=== PATIENT | female | born 1955 | race Caucasian/White ===

== ENCOUNTER → 2016-11-18 | Outpatient (CLI) | payer BC ==
--- NOTE | 2016-11-20 09:40 | MM ---
Reason for exam: screening (asymptomatic). Last mammogram was performed 1 year and 4 months ago. History: Patient is postmenopausal and had first child at age 32. Family history of breast cancer in mother at age 70 and breast cancer in maternal aunt at age 65. Benign excisional biopsy of the right breast. Took estrogen for 5 months. Physical Findings: A clinical breast exam by your physician is recommended on an annual basis and results should be correlated with mammographic findings. MG 3D Screening Mammo W/Cad Bilateral CC and MLO view(s) were taken. Prior study comparison: July 13, 2015, bilateral MG 3d screening mammo w/cad. July 06, 2014, bilateral MG screening mammo w CAD. July 05, 2013, bilateral digital screening mammo w/CAD. There are scattered fibroglandular densities. Finding: There are typically benign round calcifications in the right breast. There is no discrete abnormality. ASSESSMENT: Benign, BI-RAD 2 RECOMMENDATION: Routine screening mammogram of both breasts in 1 year.
== END | disposition home or self-care (01) ==
LOC: RADMAMWWP 14:18
PROVIDERS: ATTEND Obstetrics & Gynecology
DX: Z12.31 Encounter for screening mammogram for malignant neoplasm of breast (principal)
CPT/HCPCS: 77063; G0202

== ENCOUNTER → 2018-02-19 | Outpatient (CLI) | payer BC ==
--- NOTE | 2018-02-22 10:41 | MM ---
Reason for exam: screening (asymptomatic). Last mammogram was performed 1 year and 3 months ago. History: Patient is postmenopausal and had first child at age 32. Family history of breast cancer in mother at age 70 and breast cancer in maternal aunt at age 65. Benign excisional biopsy of the right breast. Took estrogen for 5 months. Physical Findings: A clinical breast exam by your physician is recommended on an annual basis and results should be correlated with mammographic findings. MG 3D Screening Mammo W/Cad Bilateral CC and MLO view(s) were taken. Prior study comparison: November 18, 2016, bilateral MG 3d screening mammo w/cad. July 13, 2015, bilateral MG 3d screening mammo w/cad. There are scattered fibroglandular densities. No suspicious abnormality. Post surgical change on the right. No significant changes when compared with prior studies. ASSESSMENT: Benign, BI-RAD 2 RECOMMENDATION: Routine screening mammogram of both breasts in 1 year.
== END ==
LOC: RADMAMWWP 16:40
PROVIDERS: ATTEND Obstetrics & Gynecology
DX: Z12.31 Encounter for screening mammogram for malignant neoplasm of breast (principal)
CPT/HCPCS: 77063; 77067

== ENCOUNTER → 2019-04-12 | Outpatient (CLI) | payer BC ==
--- NOTE | 2019-04-12 13:43 | MM ---
Reason for exam: screening (asymptomatic). Last mammogram was performed 1 year and 2 months ago. History: Patient is postmenopausal and had first child at age 32. Family history of breast cancer in mother at age 70 and breast cancer in maternal aunt at age 65. Benign excisional biopsy of the right breast. Took estrogen for 5 months. Physical Findings: A clinical breast exam by your physician is recommended on an annual basis and results should be correlated with mammographic findings. MG 3D Screening Mammo W/Cad Bilateral CC and MLO view(s) were taken. Prior study comparison: February 19, 2018, bilateral MG 3d screening mammo w/cad. November 18, 2016, bilateral MG 3d screening mammo w/cad. There are scattered fibroglandular densities. There are benign appearing round calcifications in the right breast. There is no discrete abnormality. ASSESSMENT: Benign, BI-RAD 2 RECOMMENDATION: Routine screening mammogram of both breasts in 1 year.
== END ==
LOC: RADMAMWWP 09:54
PROVIDERS: ATTEND Obstetrics & Gynecology
DX: Z12.31 Encounter for screening mammogram for malignant neoplasm of breast (principal)
CPT/HCPCS: 77063; 77067

== ENCOUNTER → 2020-05-01 | Outpatient (CLI) | payer MEDICARE, BC ==
--- NOTE | 2020-05-02 10:51 | MM ---
Reason for exam: screening (asymptomatic). Last mammogram was performed 1 year and 1 month ago. History: Patient is postmenopausal and had first child at age 32. Family history of breast cancer in mother at age 70 and breast cancer in maternal aunt at age 65. Benign excisional biopsy of the right breast. Took hormonal contraceptives for 6 months. Took estrogen for 5 months. Physical Findings: A clinical breast exam by your physician is recommended on an annual basis and results should be correlated with mammographic findings. MG 3D Screening Mammo W/Cad Bilateral CC and MLO view(s) were taken. Prior study comparison: April 12, 2019, bilateral MG 3d screening mammo w/cad. February 19, 2018, bilateral MG 3d screening mammo w/cad. There are scattered fibroglandular densities. No significant changes when compared with prior studies. ASSESSMENT: Benign, BI-RAD 2 RECOMMENDATION: Routine screening mammogram of both breasts in 1 year.
== END | disposition home or self-care (01) ==
LOC: RADMAMWWP 14:59
PROVIDERS: ATTEND Obstetrics & Gynecology
DX: Z12.31 Encounter for screening mammogram for malignant neoplasm of breast (principal); Z80.3 Family history of malignant neoplasm of breast
CPT/HCPCS: 77063; 77067

== ENCOUNTER → 2020-05-07 | Outpatient (CLI) | payer MEDICARE, BC ==
[2020-05-07 22:53] LABS: T4, Free (Free Thyroxine) 1.8 ng/dL (0.80-1.80)
[2020-05-08 17:32] LABS: Thyroid Stim Immun Quant <0.10 IU/L (<0.10)
== END | disposition home or self-care (01) ==
LOC: LABWHC1 12:33
PROVIDERS: ATTEND Internal Medicine
DX: R94.6 Abnormal results of thyroid function studies (principal)
CPT/HCPCS: 36415; 84439; 84442; 84445; 84481; 85652; 86376

== ENCOUNTER 2020-12-22 14:13 | Emergency (ER) | payer MEDICARE, BC ==
[2020-12-22 14:59] VITALS: TEMP 98.9
[2020-12-22] MEDS ORDERED: LIDOCAINE 5% PATCH TOPICAL STA (15:41)
[2020-12-22] MEDS ORDERED: ACET/COD 300 MG/30 MG STARTER PACK 6 TAB BTL PO STA (15:41)
[2020-12-22] MEDS ORDERED: valACYclovir 500 MG TAB PO STA (15:41)
--- NOTE | 2020-12-22 15:45 | ED ---
Skin/Abscess/FB HPI - General Chief complaint: Skin/Abscess/Foreign Body Stated complaint: pain on L side of head and body/rash Time Seen by Provider: 12/22/20 15:11 Source: patient Mode of arrival: ambulatory Limitations: no limitations - History of Present Illness Initial comments: 65-year-old female patient presents to the emergency department today for evaluation of rash and pain to the left side of her neck, left shoulder, left side of her head. States that she developed pain about 5 days ago. States over the last 2 days she has noticed rash developing. Denies any pain radiating down the arm. Denies any exposure to new substances including soaps, lotions, medications, or foods. States she did initially think it was muscular so she did have a massage. She denies fever or chills. States she did have chickenpox as a child. Has not received she goes vaccination. - Related Data Home Medications Medication Instructions Recorded Confirmed Albuterol Sulfate [Ventolin HFA] 2 puff INHALATION Q6H PRN 08/24/15 08/28/15 Atorvastatin [Lipitor] 20 mg PO DAILY 08/24/15 08/28/15 Cholecalciferol [Vitamin D3] 1,000 unit PO DAILY 08/24/15 08/28/15 Cyanocobalamin [Vitamin B-12] 1,000 mcg PO DAILY 08/24/15 08/28/15 Desloratadine [Clarinex] 5 mg PO DAILY 08/24/15 08/28/15 Fluticasone Nasal [place] [Flonase 1 spray EA NOSTRIL DAILY 08/24/15 08/28/15 Nasal [place]] Fluticasone/Salmeterol [Advair 1 inhalation PO DAILY 08/24/15 08/28/15 250-50 Diskus] Levothyroxine Sodium [Synthroid] 100 mcg PO QAM 08/24/15 08/28/15 Montelukast Sodium 10 mg PO HS 08/24/15 08/28/15 Ranitidine HCl 150 mg PO BID 08/24/15 08/28/15 Previous Rx's Medication Instructions Recorded Acetaminophen-Codeine 300-30mg 1 tab PO Q6H PRN #12 tablet 12/22/20 [Tylenol #3] Lidocaine 5% Patch [Lidoderm] 1 patch TOPICAL DAILY #30 patch 10/02/21 valACYclovir HCL 1,000 mg PO TID #21 tab 12/22/20 Allergies Allergy/AdvReac Type Severity Reaction Status Date / Time No Known Allergies Allergy Verified 12/22/20 14:59 Review of Systems ROS Statement: Those systems with pertinent positive or pertinent negative responses have been documented in the HPI. ROS Other: All systems not noted in ROS Statement are negative. Past Medical History Past Medical History: Asthma, GERD/Reflux, Thyroid Disorder Additional Past Medical History / Comment(s): hx polyps History of Any Multi-Drug Resistant Organisms: None Reported Past Surgical History: Section Additional Past Surgical History / Comment(s): breast bx,colonoscopy Past Anesthesia/Blood Transfusion Reactions: No Reported Reaction Past Psychological History: No Psychological Hx Reported Smoking Status: Never smoker Past Alcohol Use History: Occasional Past Drug Use History: None Reported - Past Family History Mother Family Medical History: Cancer Additional Family Medical History / Comment(s): breast Father Additional Family Medical History / Comment(s): heart problems Brother(s) Family Medical History: Myocardial Infarction ([place]) Additional Family Medical History / Comment(s): heart stents x2 General Exam Limitations: no limitations General appearance: alert, in no apparent distress, other (This is a well- developed, well-nourished adult female patient in no acute distress. Vital signs upon presentation are temperature 98.9F, pulse 73, respirations 16, blood pressure 182/85, pulse ox 96% on room air.) Neck exam: Present: other (There is erythematous vesicular rash noted over the left posterior shoulder, left posterior neck, left anterior shoulder). Absent: tenderness, meningismus, lymphadenopathy Respiratory exam: Present: normal lung sounds bilaterally. Absent: respiratory distress, wheezes, rales, rhonchi, stridor Cardiovascular Exam: Present: regular rate, normal rhythm, normal heart sounds. Absent: systolic murmur, diastolic murmur, rubs, gallop, clicks Neurological exam: Present: alert, oriented X3, CN II-XII intact Psychiatric exam: Present: normal affect, normal mood Skin exam: Present: warm, dry, intact, normal color. Absent: rash Course Vital Signs 12/22/20 12/22/20 14:56 16:22 Temperature 98.9 F Pulse Rate 73 62 Respiratory 16 18 Rate Blood Pressure 182/85 158/83 O2 Sat by Pulse 96 96 Oximetry Medical Decision Making - Medical Decision Making 65-year-old female patient presented to the emergency department today for evaluation of left-sided neck and head pain as well as rash to the left neck and shoulder. Physical examination did reveal erythematous vesicular rash consistent with shingles. Symptoms are consistent with shingles. She'll be started on valacyclovir and given pain medication. She is instructed to follow- up with her primary care physician for recheck in 1-2 days. Return parameters were discussed in detail. She verbalizes understanding and agrees with this plan. My attending is Dr. Wiley. Disposition Clinical Impression: Shingles Disposition: HOME SELF-CARE Condition: Good Instructions (If sedation given, give patient instructions): Shingles (ED) Additional Instructions: Take medications as directed. Follow-up with the primary care physician for recheck in 1-2 days. Return to the emergency department for any new, worsening, or concerning symptoms. Prescriptions: Lidocaine 5% Patch [Lidoderm] 1 patch TOPICAL DAILY #30 patch Acetaminophen-Codeine 300-30mg [Tylenol #3] 1 tab PO Q6H PRN #12 tablet PRN Reason: Pain valACYclovir HCL 1,000 mg PO TID #21 tab Is patient prescribed a controlled substance at d/c from ED?: No Referrals: Andrés Vega MD [Primary Care Provider] - 1-2 days Time of Disposition: 15:44
[2020-12-22 16:23] VITALS: BP 158/83; PULSE 62; RESP 18
== END 2020-12-22 16:23 | disposition home or self-care (01) ==
LOC: EC 14:13
DX: B02.9 Zoster without complications (principal); J45.909 Unspecified asthma, uncomplicated; K21.9 Gastro-esophageal reflux disease without esophagitis; E07.9 Disorder of thyroid, unspecified
CPT/HCPCS: 99283

== ENCOUNTER → 2021-02-27 | Outpatient (CLI) | payer MEDICARE, BC ==
--- NOTE | 2021-02-27 12:33 | XR ---
EXAMINATION TYPE: XR chest 2V DATE OF EXAM: 02/27/2021 COMPARISON: 08/28/2015 INDICATION: Bronchitis TECHNIQUE: Frontal and lateral views of the chest are obtained. FINDINGS: The heart size is normal. The pulmonary vasculature is normal. The lungs are clear. IMPRESSION: 1. No acute pulmonary process.
== END | disposition home or self-care (01) ==
LOC: RADXRMAIN 09:58
PROVIDERS: ATTEND Internal Medicine
DX: J40 Bronchitis, not specified as acute or chronic (principal)
CPT/HCPCS: 71046

== ENCOUNTER → 2021-05-23 | Outpatient (CLI) | payer MEDICARE, BC ==
--- NOTE | 2021-05-23 12:56 | US ---
EXAMINATION TYPE: US carotid duplex BILAT DATE OF EXAM: 05/23/2021 COMPARISON: NONE CLINICAL HISTORY: I65.23 OCCLUSION AND STENOSIS OF BILATERAL CAROTID. EXAM MEASUREMENTS: RIGHT: Peak Systolic Velocity (PSV) cm/sec ----- Right CCA: 105.6 ----- Right ICA: 86.6 ----- Right ECA: 122.1 ICA/CCA ratio: 0.8 RIGHT: End Diastole cm/sec ----- Right CCA: 30.5 ----- Right ICA: 22.9 ----- Right ECA: 25.2 LEFT: Peak Systolic Velocity (PSV) cm/sec ----- Left CCA: 91.6 ----- Left ICA: 104.3 ----- Left ECA: 73.8 ICA/CCA ratio: 1.1 LEFT: End Diastole cm/sec ----- Left CCA: 30.0 ----- Left ICA: 34.4 ----- Left ECA: 17.1 VERTEBRALS (direction of flow): Right Vertebral: Antegrade Left Vertebral: Antegrade Rhythm: Normal Minimal atherosclerotic changes without significant velocity increases. IMPRESSION: 1. Minimal atherosclerotic changes without significant flow-limiting stenosis. Criteria for Assigning % of Stenosis / Diameter reduction (Estimation based on the indirect measurements of the internal carotid artery velocities (ICA PSV). 1. Normal (no stenosis)=ICA PSV < 125 cm/s: ratio < 2.0: ICA EDV<40 cm/s. 2. Less than 50% stenosis=ICA PSV < 125 cm/s: ratio < 2.0: ICA EDV<40 cm/s. 3. 50 to 69% stenosis=ICA PSV of 125 to 230 cm/s: ration 2.0 ? 4.0: ICA EDV 40-100 cm/s. 4. Greater than 70% stenosis to near occlusion= ICA PSV > 230 cm/s: ratio > 4.0: ICA EDV > 100 cm/s. 5. Near occlusion= ICA PSV velocities may be low or undetectable: variable ratio and ICA EDV. 6. Total occlusion=unable to detect flow.
== END | disposition home or self-care (01) ==
LOC: RADUSWWP 12:13
PROVIDERS: ATTEND Internal Medicine
DX: I65.23 Occlusion and stenosis of bilateral carotid arteries (principal)
CPT/HCPCS: 93880

== ENCOUNTER → 2021-06-14 | Outpatient (CLI) | payer MEDICARE, BC ==
--- NOTE | 2021-06-14 11:17 | NM ---
EXAMINATION TYPE: NM stress cardiolite complete DATE OF EXAM: 06/14/2021 COMPARISON: NONE HISTORY: History of hypercholesteremia family history of heart attack presents with atherosclerotic h eart disease TECHNIQUE: After the intravenous administration of 9.47 mCi Tc 99m Sestamibi - Rest images obtained 45 minutes post injection. The patient exercised using a ARELY protocol and 1 minute prior to peak exercise was injected with 24.9 mCi Tc 99m Sestamibi - Stress images obtained 10 minutes post injecti on. FINDINGS: Targeted heart rate was achieved during performance of the study. Review of stress and rest SPECT shanel ges demonstrates no distinct perfusion abnormality. Gated analysis shows normal wall motion with an estimated left ventricular ejection fraction of 74 %. IMPRESSION: No scintigraphic evidence for reversible ischemia
--- NOTE | 2021-06-14 16:14 | EST ---
EXERCISE STRESS INDICATION: Coronary artery disease. AGE: 66 SEX: F HT: 5' WT: 130 lbs. PROTOCOL: Cardiolite Sal STAGE: 3 DURATION OF EXERCISE: 7:30 HEART RATE REST: 62 BLOOD PRESSURE REST: 151/91 MAXIMUM HEART RATE ACHIEVED: 137 MAXIMUM BLOOD PRESSURE: 204/100 85% MPHR: 131 100% MPHR: 154 METS: 9.1 RESULTS: Baseline EKG shows sinus rhythm, normal axis, normal intervals. Patient exercised on Sal protocol for a total of 7.5 minutes achieving 8 METS, 89% of predicted maximal heart rate, without chest pain or diagnostic ST-segment depression. CONCLUSIONS: 1. Average exercise tolerance. 2. Negative stress test by EKG criteria. 3. Cardiolite portion of the stress test will be reported separately. MMODL / IJN: [id number] /
== END | disposition home or self-care (01) ==
LOC: RADNMMAIN 08:19
PROVIDERS: ATTEND Internal Medicine
DX: I25.10 Atherosclerotic heart disease of native coronary artery without angina pectoris (principal); Z86.39 Personal history of other endocrine, nutritional and metabolic disease; Z82.49 Family history of ischemic heart disease and other diseases of the circulatory system
CPT/HCPCS: 93017; 78452; A9500

== ENCOUNTER → 2021-07-04 | Outpatient (CLI) | payer MEDICARE, BC ==
--- NOTE | 2021-07-05 10:22 | MM ---
Reason for exam: screening (asymptomatic). Last mammogram was performed 1 year and 2 months ago. History: Patient is postmenopausal and had first child at age 32. Family history of breast cancer in mother at age 70 and breast cancer in maternal aunt at age 65. Benign excisional biopsy of the right breast. Took hormonal contraceptives for 6 months. Took estrogen for 5 months. Physical Findings: A clinical breast exam by your physician is recommended on an annual basis and results should be correlated with mammographic findings. MG 3D Screening Mammo W/Cad Bilateral CC and MLO view(s) were taken. Prior study comparison: May 01, 2020, bilateral MG 3d screening mammo w/cad. April 12, 2019, bilateral MG 3d screening mammo w/cad. There are scattered fibroglandular densities. There is no discrete abnormality. ASSESSMENT: Negative, BI-RAD 1 RECOMMENDATION: Routine screening mammogram of both breasts in 1 year.
== END | disposition home or self-care (01) ==
LOC: RADMAMWWP 13:08
PROVIDERS: ATTEND Obstetrics & Gynecology
DX: Z12.31 Encounter for screening mammogram for malignant neoplasm of breast (principal); Z78.0 Asymptomatic menopausal state; Z80.3 Family history of malignant neoplasm of breast
CPT/HCPCS: 77063; 77067

== ENCOUNTER → 2021-11-15 | Outpatient (CLI) | payer MEDICARE, BC ==
[2021-11-15 14:29] LABS: Basophils # (A) 0.04 X 10*3/uL (0.00-0.10); Basophils % (A) 0.6 %; Eosinophils # (A) 0.58 X 10*3/uL (0.04-0.35); Eosinophils % (A) 9.3 %; HCT 40.7 % (37.2-46.3); HGB 13.4 g/dL (12.0-15.0); Immature Grans, Automated 0.2 %; Lymphocytes % (A) 38.6 %; MCH 29.5 pg (27.0-32.0); MCHC 32.9 g/dL (32.0-37.0); MCV 89.6 fL (80.0-97.0); Mean Platelet Volume 9.7 fL (9.5-12.2); Monocytes # (A) 0.44 X 10*3/uL (0.20-1.00); Monocytes % (A) 7.1 %; NRBC Per 100 WBC 0 /100 WBCS (0.0-0.0); Neutrophils # (A) 2.75 X 10*3/uL (1.80-7.70); Neutrophils % (A) 44.2 %; Platelet Count 279 X 10*3/uL (140-440); RBC 4.54 X 10*6/uL (4.10-5.20); RDW 12.8 % (11.5-14.5); WBC 6.22 X 10*3/uL (4.50-10.00)
[2021-11-15 16:24] LABS: African American GFR (CKD) 90.8 (60.0-200.0); Blood Urea Nitrogen 15.1 mg/dL (9.0-27.0); Non-African American GFR(CKD) 78.4 (60.0-200.0); T4, Free (Free Thyroxine) 2.09 ng/dL (0.800-1.800)
== END | disposition home or self-care (01) ==
LOC: LABWHC1 10:13
PROVIDERS: ATTEND Physician Assistant Medical
DX: L24.9 Irritant contact dermatitis, unspecified cause (principal)
CPT/HCPCS: 36415; 82565; 84439; 84443; 84450; 84460; 84520; 85025

== ENCOUNTER → 2022-09-11 | Outpatient (CLI) | payer MEDICARE, BC ==
--- NOTE | 2022-09-12 20:16 | MM ---
Reason for Exam: Screening (asymptomatic). Last mammogram was performed 1 year(s) and 2 month(s) ago. Patient History: Menarche at age 13. First Full-Term at age 32. Late child-bearing (after 30). Postmenopausal. Estrogen for 5 months. Hormonal Contraceptives for 6 months. Benign Excisional Biopsy on the right side. Maternal aunt had breast cancer, age 65. Mother had breast cancer, age 70. Risk Values: Milena 5 year model risk: 4.0%. NCI Lifetime model risk: 13.3%. Prior Study Comparison: 04/12/2019 Bilateral Screening Mammogram, [facility]. 05/01/2020 Bilateral Screening Mammogram, [facility]. 07/04/2021 Bilateral Screening Mammogram, [facility]. Tissue Density: There are scattered fibroglandular densities. Findings: Analyzed By CAD. There is no suspicious group of microcalcifications or new suspicious mass in either breast. Overall Assessment: Negative, BI-RAD 1 Management: Screening Mammogram of both breasts in 1 year. See note below in regards to patient's increased five-year Milena score. Patient should continue monthly self-breast exams. A clinical breast exam by your physician is recommended on an annual basis. This exam should not preclude additional follow-up of suspicious palpable abnormalities. Note on Milena scores and lifetime risk: 1. A Milena score greater than 3% is considered moderate risk. If this is the case, consider specialist referral to assess eligibility for a risk reducing agent. 2. If overall lifetime risk for the development of breast cancer is 20% or higher, the patient may qualify for future screening with alternating mammogram and breast MRI. Electronically signed and approved by: Marcelina Brink M.D. Radiologist
== END | disposition home or self-care (01) ==
LOC: RADMAMWWP 13:30
PROVIDERS: ATTEND Obstetrics & Gynecology
DX: Z12.31 Encounter for screening mammogram for malignant neoplasm of breast (principal); Z78.0 Asymptomatic menopausal state; Z80.3 Family history of malignant neoplasm of breast
CPT/HCPCS: 77063; 77067

== ENCOUNTER → 2023-10-01 | Outpatient (CLI) | payer MEDICARE, BC ==
--- NOTE | 2023-10-04 16:30 | BD ---
EXAMINATION TYPE: Axial Bone Density DATE OF EXAM: 10/01/2023 CLINICAL HISTORY: 68 years old Female. ICD-10 CODE: M81.0 AGE RELATED OSTEO Height: 59in Weight: 131lb FRAX RISK QUESTIONS: History of Fracture in Adulthood: yes Secondary Osteoporosis: RISK FACTORS HISTORY OF: MEDICATIONS: Thyroid Medications: Which medication: Levothyroxine How Lon years EXAM MEASUREMENTS: Bone mineral densitometry was performed using the [employer] System. Bone mineral density as measured about the Lumbar spine is: ----- L1-L4(G/cm2): 1.556 T Score Values are as follows: ----- L1: 3.2 ----- L2: 2.6 ----- L3: 3.2 ----- L4: 3.3 ----- L1-L4: 3.1 Z Score Values are as follows: ----- L1: 5.0 ----- L2: 4.4 ----- L3: 5.1 ----- L4: 5.1 ----- L1-L4: 5.0 Bone mineral density has: Increased 3.8% since study of: 05-16-19 Bone mineral density about the R hip (g/cm2): 1.133 Bone mineral density about the L hip (g/cm2): 1.134 T Score values are as follows: -----R Neck: 0.1 -----L Neck: 0.0 -----R Total: 1.0 -----L Total: 1.0 Z Score values are as follows: -----R Neck: 1.8 -----L Neck: 1.7 -----R Total: 2.5 -----L Total: 2.5 Bone mineral density has: Decreased -3.2% since study of: 05-16-19 FRAX%s: The graph provided illustrates a 11.5% chance for a major osteoporotic fx and a 0.5% chance f or the hips probability for fx in 10 years time. IMPRESSION: Normal (Values between +1 and -1 indicate normal bone mass). Consider repeating this study in 5 year s or sooner if there is some new clinical indication. NOTE: T-SCORE=SD OF THE YOUNG ADULT MEAN.
--- NOTE | 2023-10-08 10:45 | MM ---
Reason for Exam: Screening (asymptomatic). Last mammogram was performed 1 year(s) and 1 month(s) ago. Patient History: Menarche at age 13. First Full-Term at age 32. Late child-bearing (after 30). Postmenopausal. Estrogen for 5 months. Hormonal Contraceptives for 6 months. Benign Excisional Biopsy on the right side. Maternal aunt had breast cancer, age 65. Mother had breast cancer, age 70. Risk Values: Milena 5 year model risk: 4.1%. NCI Lifetime model risk: 12.8%. Prior Study Comparison: 07/13/2015 Bilateral Screening Mammogram, [facility]. 11/18/2016 Bilateral Screening Mammogram, [facility]. 02/19/2018 Bilateral Screening Mammogram, [facility]. 04/12/2019 Bilateral Screening Mammogram, [facility]. 05/01/2020 Bilateral Screening Mammogram, [facility]. 07/04/2021 Bilateral Screening Mammogram, [facility]. 09/11/2022 Bilateral MG 3D screening mammo w/cad, [facility]. Tissue Density: There are scattered areas of fibroglandular density. Findings: Analyzed By CAD. The pattern is symmetrical. There is a mild increased lung markings upper right breast which are nonspecific. Additional evaluation recommended. Left breast:No suspicious groups of microcalcifications, spiculated or lobular masses, architectural distortion or other secondary signs of malignancy are mammographically apparent. Overall Assessment: Incomplete: need additional imaging evaluation, BI-RAD 0 Management: Diagnostic Mammogram of the right breast. A negative mammogram report should not preclude additional follow up of suspicious palpable abnormalities. Patient should continue monthly self breast exam. A clinical breast exam by your physician is recommended on an annual basis and results should be correlated with mammographic findings. Note on Milena scores and lifetime risk: 1. A Milena score greater than 3% is considered moderate risk. If this is the case, consider specialist referral to assess eligibility for a risk reducing agent. 2. If overall lifetime risk for the development of breast cancer is 20% or higher, the patient may qualify for future screening with alternating mammogram and breast MRI. Electronically signed and approved by: Cuco Lynn D.O. Radiologis
== END | disposition home or self-care (01) ==
LOC: RADMAMWWP 09:42
PROVIDERS: ATTEND Internal Medicine
DX: Z12.31 Encounter for screening mammogram for malignant neoplasm of breast (principal); M81.0 Age-related osteoporosis without current pathological fracture; Z80.3 Family history of malignant neoplasm of breast; Z78.0 Asymptomatic menopausal state
CPT/HCPCS: 77063; 77067; 77080

== ENCOUNTER → 2023-10-09 | Outpatient (CLI) | payer MEDICARE, BC ==
--- NOTE | 2023-10-09 08:56 | MM ---
Reason for Exam: Additional evaluation requested from abnormal screening. Last screening mammogram was performed less than 1 month ago. Patient History: Menarche at age 13. First Full-Term at age 32. Late child-bearing (after 30). Postmenopausal. Estrogen for 5 months. Hormonal Contraceptives for 6 months. Benign Excisional Biopsy on the right side. Maternal aunt had breast cancer, age 65. Mother had breast cancer, age 70. Risk Values: Milena 5 year model risk: 4.1%. NCI Lifetime model risk: 12.8%. Prior Study Comparison: 07/13/2015 Bilateral Screening Mammogram, [facility]. 11/18/2016 Bilateral Screening Mammogram, [facility]. 02/19/2018 Bilateral Screening Mammogram, [facility]. 04/12/2019 Bilateral Screening Mammogram, [facility]. 05/01/2020 Bilateral Screening Mammogram, [facility]. 07/04/2021 Bilateral Screening Mammogram, [facility]. 09/11/2022 Bilateral MG 3D screening mammo w/cad, [facility]. 10/01/2023 Bilateral MG 3D screening mammo w/cad, [facility]. Tissue Density: Right: There are scattered areas of fibroglandular density. Findings: Analyzed By CAD. Asymmetric density superior right breast disperses on spot compression compatible with superimposition shadow. No significant change. Overall Assessment: Benign, BI-RAD 2 Management: Screening Mammogram of both breasts in 1 year. See note below in regards to patient's increased 5 year Milena score. Results were given to the patient verbally at the time of exam. Patient should continue monthly self-breast exams. A clinical breast exam by your physician is recommended on an annual basis. This exam should not preclude additional follow-up of suspicious palpable abnormalities. Note on Milena scores and lifetime risk: 1. A Milena score greater than 3% is considered moderate risk. If this is the case, consider specialist referral to assess eligibility for a risk reducing agent. 2. If overall lifetime risk for the development of breast cancer is 20% or higher, the patient may qualify for future screening with alternating mammogram and breast MRI. Electronically signed and approved by: Marcelina Brink M.D. Radiologist
== END | disposition home or self-care (01) ==
LOC: RADMAMWWP 08:22
PROVIDERS: ATTEND Internal Medicine
DX: R92.8 Other abnormal and inconclusive findings on diagnostic imaging of breast (principal); R92.321 Mammographic fibroglandular density, right breast; Z78.0 Asymptomatic menopausal state; Z80.3 Family history of malignant neoplasm of breast
CPT/HCPCS: 77065; G0279; 77061

== ENCOUNTER → 2024-03-01 | Outpatient (CLI) | payer MEDICARE, BC ==
--- NOTE | 2024-03-02 08:16 | CA ---
Transthoracic Echo Report Name: Marialuisa Norman Age: 68 Gender: F : 1955 Exam Date: 03/01/2024 15:25 Exam Location: [facility] Ht (in): 60 Wt (lb): 130 Ordering Physician: Andrés Vega MD Attending/Referring Phys: Special Systems Technician Maddie Fallon RDCS Procedure CPT: Indications: I25.10 ATHSCL HEART DISEASE; I65.23 OCCLUSION AND Cardiac Hx: Technical Quality: Good Contrast 1: Total Dose (mL): Contrast 2: Total Dose (mL): MEASUREMENTS (Male / Female) Normal Values 2D ECHO LV Diastolic Diameter PLAX 3.8 cm 4.2 - 5.9 / 3.9 - 5.3 cm LV Systolic Diameter PLAX 2.5 cm IVS Diastolic Thickness 0.9 cm 0.6 - 1.0 / 0.6 - 0.9 cm LVPW Diastolic Thickness 1.0 cm 0.6 - 1.0 / 0.6 - 0.9 cm LV Relative Wall Thickness 0.5 LVOT Diameter 2.0 cm LV Diastolic Volume MOD BP 87.6 cm??? 67 - 155 / 56 - 104 cm??? LV Systolic Volume MOD BP 35.3 cm??? 22 - 58 / 19 - 49 cm??? LV Ejection Fraction MOD BP 59.7 % >= 55 % LV Cardiac Index MOD BP 2428.3 cm???/min???m??? LV Diastolic Volume MOD 4C 87.5 cm??? LV Systolic Volume MOD 4C 33.0 cm??? LV Ejection Fraction MOD 4C 62.2 % LV Cardiac Index MOD 4C 2525.8 cm???/min???m??? LV Diastolic Length 4C 7.6 cm LV Systolic Length 4C 6.1 cm LV Diastolic Volume MOD 2C 87.4 cm??? LV Systolic Volume MOD 2C 36.6 cm??? LV Ejection Fraction MOD 2C 58.1 % LV Cardiac Index MOD 2C 2358.9 cm???/min???m??? LV Diastolic Length 2C 7.6 cm LV Systolic Length 2C 6.3 cm LA Volume 38.5 cm??? 18 - 58 / 22 - 52 cm??? LA Volume Index 24.2 cm???/m??? 16 - 28 cm???/m??? Ascending Aorta Diameter 3.4 cm DOPPLER AV Peak Velocity 143.7 cm/s AV Peak Gradient 8.3 mmHg AV Mean Velocity 92.5 cm/s AV Mean Gradient 3.9 mmHg AV Velocity Time Integral 29.4 cm LVOT Peak Velocity 101.2 cm/s LVOT Peak Gradient 4.1 mmHg LVOT Velocity Time Integral 21.8 cm LVOT Stroke Volume 67.3 cm??? LVOT Stroke Volume Index 43.3 ml/m??? LVOT Cardiac Index 3124.0 cm???/min???m??? AV Area Cont Eq vti 2.3 cm??? AV Area Cont Eq pk 2.2 cm??? MV Area PHT 3.4 cm??? Mitral E Point Velocity 77.9 cm/s Mitral A Point Velocity 73.1 cm/s Mitral E to A Ratio 1.1 MV Deceleration Time 221.1 ms TR Peak Velocity 274.4 cm/s TR Peak Gradient 30.1 mmHg Right Atrial Pressure 5.0 mmHg Pulmonary Artery Systolic Pressu 35.1 mmHg Right Ventricular Systolic Press 35.1 mmHg PV Peak Velocity 88.7 cm/s PV Peak Gradient 3.1 mmHg FINDINGS Left Ventricle Left ventricular ejection fraction is estimated at 60 %. Left ventricular cavity size normal. Left ventricular wall thickness normal. No obvious regional wall motion abnormalities. Right Ventricle Normal right ventricular size and function. Borderline elevated right ventricular systolic pressure. Right Atrium Normal right atrial size. Left Atrium Normal left atrial size. Mitral Valve Structurally normal mitral valve. No evidence for mitral valve prolapse. No mitral stenosis. Trace mitral regurgitation. Aortic Valve Trileaflet aortic valve. No aortic valve stenosis or regurgitation. Tricuspid Valve Structurally normal tricuspid valve. No tricuspid stenosis. Mild tricuspid regurgitation. Pulmonic Valve Structurally normal pulmonic valve. No pulmonic stenosis. Trace pulmonic regurgitation. Pericardium No pericardial effusion. Echo free space anterior to the right ventricle likely represents a fat pad. Aorta Normal size aortic root and proximal ascending aorta. CONCLUSIONS Normal LV size and systolic function with mild concentric LVH. No significant abnormality on the Doppler exam. No pericardial effusion. Possible fat pad Previewed by: Dr. Sarai Sotomayor MD (Electronically Signed) Final Date: 02 March 2024 08:16
--- NOTE | 2024-03-03 02:31 | US ---
EXAMINATION TYPE: US carotid duplex BILAT DATE OF EXAM: 03/01/2024 COMPARISON: US(05/23/2021) CLINICAL INDICATION: Female, 68 years old with history of I25.10 ATHSCL HEART DISEASE; I65.23 OCCLUSI ON AND; Additional History: .... TECHNIQUE: Grayscale, color Doppler and spectral Doppler evaluation of the bilateral carotid systems and vertebral arteries. Indirect Doppler criteria was utilized. FINDINGS: EXAM MEASUREMENTS: RIGHT: Peak Systolic Velocity (PSV) cm/sec ----- Right CCA: 96.0 ----- Right ICA: 116 ----- Right ECA: 83.6 ICA/CCA ratio: 1.2 RIGHT: End Diastole cm/sec ----- Right CCA: 22.7 ----- Right ICA: 19.7 ----- Right ECA: 8.7 LEFT: Peak Systolic Velocity (PSV) cm/sec ----- Left CCA: 92.4 ----- Left ICA: 80.7 ----- Left ECA: 72.5 ICA/CCA ratio: 0.9 LEFT: End Diastole cm/sec ----- Left CCA: 23.0 ----- Left ICA: 26.7 ----- Left ECA: 11.8 VERTEBRALS (direction of flow): Right Vertebral: Antegrade Left Vertebral: Antegrade Rhythm: Normal LICENSING MANAGER NOTES: No elevated velocities seen, no plaque seen, no significant stenosis visualized Color Doppler imaging shows patency with blood flow throughout the carotid artery. Spectral waveforms are within normal limits. IMPRESSION: 1. No significant flow-limiting stenosis bilateral carotid bifurcations. Criteria for Assigning % of Stenosis / Diameter reduction (Estimation based on the indirect measurements of the internal carotid artery velocities (ICA PSV). 1. Normal (no stenosis)=ICA PSV < 125 cm/s: ratio < 2.0: ICA EDV<40 cm/s. 2. Less than 50% stenosis=ICA PSV < 125 cm/s: ratio < 2.0: ICA EDV<40 cm/s. 3. 50 to 69% stenosis=ICA PSV of 125 to 230 cm/s: ration 2.0 ? 4.0: ICA EDV 40-100 cm/s. 4. Greater than 70% stenosis to near occlusion= ICA PSV > 230 cm/s: ratio > 4.0: ICA EDV > 100 cm/s. 5. Near occlusion= ICA PSV velocities may be low or undetectable: variable ratio and ICA EDV. 6. Total occlusion=unable to detect flow. [facility], , 03/03/2024 2:29 AM
== END | disposition home or self-care (01) ==
LOC: RADECHMAIN 15:20
PROVIDERS: ATTEND Internal Medicine
DX: I25.10 Atherosclerotic heart disease of native coronary artery without angina pectoris (principal); I65.23 Occlusion and stenosis of bilateral carotid arteries; Z84.81 Family history of carrier of genetic disease
CPT/HCPCS: 93306; 93880; C8908; A9585; 77049

== ENCOUNTER → 2024-10-14 | Outpatient (CLI) | payer MEDICARE, BC ==
--- NOTE | 2024-10-17 08:02 | MM ---
Reason for Exam: Screening (asymptomatic). Last screening mammogram was performed 12 month(s) ago. Patient History: Menarche at age 13. First Full-Term at age 32. Late child-bearing (after 30). Postmenopausal. Estrogen for 5 months. Hormonal Contraceptives for 6 months. Benign Excisional Biopsy on the right side. Maternal aunt had breast cancer, age 65. Mother had breast cancer, age 70. Risk Values: Milena 5 year model risk: 4.1%. NCI Lifetime model risk: 12.2%. Prior Study Comparison: 09/11/2022 Bilateral MG 3D screening mammo w/cad, [facility]. 10/01/2023 Bilateral MG 3D screening mammo w/cad, [facility]. 10/09/2023 Right MG 3D work up w/cad RT, [facility]. Tissue Density: There are scattered areas of fibroglandular density. Findings: Analyzed By CAD. Asymmetric density superior left MLO view is unchanged. There is no suspicious group of microcalcifications or new suspicious mass in either breast. Overall Assessment: Benign, BI-RAD 2 Management: Screening Mammogram of both breasts in 1 year. See note below in regards to the patient's increased 5 year Milena score. Patient should continue monthly self-breast exams. A clinical breast exam by your physician is recommended on an annual basis. This exam should not preclude additional follow-up of suspicious palpable abnormalities. Note on Milena scores and lifetime risk: 1. A Milena score greater than 3% is considered moderate risk. If this is the case, consider specialist referral to assess eligibility for a risk reducing agent. 2. If overall lifetime risk for the development of breast cancer is 20% or higher, the patient may qualify for future screening with alternating mammogram and breast MRI. [facility], , 10/17/2024 7:59 AM. Electronically signed and approved by: Marcelina Brink M.D. Radiologist
== END | disposition home or self-care (01) ==
LOC: RADMAMWWP 15:42
PROVIDERS: ATTEND Internal Medicine
DX: Z12.31 Encounter for screening mammogram for malignant neoplasm of breast (principal); R92.323 Mammographic fibroglandular density, bilateral breasts; Z78.0 Asymptomatic menopausal state; Z80.3 Family history of malignant neoplasm of breast; Z92.0 Personal history of contraception
CPT/HCPCS: 77063; 77067